=== PATIENT | female | born 1940 | race Caucasian/White ===

== ENCOUNTER 2017-11-28 13:14 | Inpatient (IN) | payer MEDICARE, BC ==
[~2017-11-28] VITALS: Ht 162.6 cm; Wt 73.9 kg
[~2017-11-28 13:14] MED LIST: LOSA25TA13 PO; THYR30TA2 PO
[2017-11-28 14:41] LABS: BASOPHILS % (AUTO) 0.4 % (0.0-2.0); EOSINOPHILS % (AUTO) 0.5 % (0.0-6.0); HEMATOCRIT 24 % (33-45); HEMOGLOBIN 7.9 g/dL (11.5-14.8); LYMPHOCYTES # (AUTO) 0.9 /CMM (0.8-4.8); LYMPHOCYTES % (AUTO) 17.7 % (20.0-44.0); MEAN CORPUSCULAR HGB CONC 33 g/dl (31.0-36.0); MEAN CORPUSCULAR VOLUME 123 fL (82-100); MONOCYTES # (AUTO) 0.4 /CMM (0.1-1.30); MONOCYTES % (AUTO) 7.9 % (2.0-12.0); NEUTROPHILS # (AUTO) 3.6 /CMM (1.8-8.9); NEUTROPHILS % (AUTO) 73.5 % (43.0-81.0); PLATELET COUNT (AUTO) 460 /CMM (150-450); RDW COEFFICIENT OF VARIATION 13.7 (11.5-15.0); WHITE BLOOD COUNT (AUTO) 4.9 K/uL (4.3-11.0)
[2017-11-28 14:47] LABS: RED BLOOD CELL COUNT(AUTO) 1.96 MIL/uL (4.0-5.2)
[2017-11-28 14:52] LABS: CALCIUM, SERUM 8.9 mg/dL (8.5-10.1); CARBON DIOXIDE 28 mmol/L (21-32); CHLORIDE 100 mmol/L (98-107); GLUCOSE 121 mg/dL (74-106); POTASSIUM 4.6 mmol/L (3.5-5.1); SODIUM SERUM 135 mmol/L (136-145); UREA NITROGEN, BLOOD 44 mg/dL (7-18)
[2017-11-28 14:56] LABS: D-DIMER 0.19 mg/L(FEU (0.17-0.50); INR 0.93 (0.87-1.13)
[2017-11-28 14:58] LABS: TROPONIN I < 0.017 ng/mL (0.00-0.056)
[2017-11-28] MEDS ORDERED: PANTOPRAZOLE 40 MG VIAL IV ONE (15:00)
[2017-11-28 15:03] LABS: B-TYPE NATRIURETIC PEPTIDE 67 PG/ML (0-125)
[2017-11-28] MEDS ORDERED: HYDR500C2 (15:25)
[2017-11-28] MEDS ORDERED: URSO250T11 PO (15:25)
[2017-11-28 15:32] LABS: THYROID STIMULATING HORMONE 2.938 uIU/mL (0.358-3.74)
[2017-11-28] MEDS ORDERED: PANTOPRAZOLE 40 MG VIAL ONE (15:35)
[2017-11-28 16:00] VITALS: BP 128/63
[2017-11-28] MEDS ORDERED: MAG HYDROX/AL HYDROX/SIMETH 30 ML UDC PO PRN (16:30)
[2017-11-28] MEDS ORDERED: Z GUARD REMEDY 2 OZ OINT TP PRN (16:30)
[2017-11-28] MEDS ORDERED: ACETAMINOPHEN 325 MG TABLET PO PRN (16:30)
[2017-11-28] MEDS ORDERED: ZOLPIDEM TARTRATE 5 MG TABLET PO PRN (16:30)
[2017-11-28] MEDS ORDERED: MAGNESIUM HYDROXIDE 30 ML UDC PO PRN (16:30)
[2017-11-28] MEDS ORDERED: HYDROCODONE/APAP 5/325MG 1 EACH TABLET PO PRN (16:30)
[2017-11-28] MEDS ORDERED: ONDANSETRON HCL/PF 4 MG/2 ML VIAL IVP PRN (16:30)
[2017-11-28] MEDS ORDERED: PANTOPRAZOLE 40 MG VIAL IV SCH (17:00)
[2017-11-28] MEDS: IV D5 LR 1,000 ML IV PRN (18:01)
[2017-11-28 20:00] VITALS: BP 102/57
[2017-11-28 20:39] LABS: ALBUMIN 3.5 g/dL (3.4-5.0); BILIRUBIN,DIRECT 0.1 mg/dL (0.0-0.2); BILIRUBIN,TOTAL 0.3 mg/dL (0.2-1.0); TOTAL PROTEIN, SERUM 6.4 g/dL (6.4-8.2)
[2017-11-29] VITALS (9 sets, daily range): BP systolic 78–116; BP diastolic 39–63
[2017-11-29 06:36] LABS: CALCIUM, SERUM 8.2 mg/dL (8.5-10.1); CARBON DIOXIDE 27 mmol/L (21-32); CHLORIDE 104 mmol/L (98-107); CREATININE 0.9 mg/dL (0.6-1.3); GLUCOSE 124 mg/dL (74-106); MAGNESIUM 2.1 mg/dL (1.8-2.4); PHOSPHORUS 3.9 mg/dL (2.5-4.9); POTASSIUM 4.3 mmol/L (3.5-5.1); SODIUM SERUM 139 mmol/L (136-145); UREA NITROGEN, BLOOD 30 mg/dL (7-18)
[2017-11-29 06:38] LABS: BASOPHILS % (AUTO) 0.7 % (0.0-2.0); EOSINOPHILS % (AUTO) 1.8 % (0.0-6.0); HEMATOCRIT 21 % (33-45); LYMPHOCYTES # (AUTO) 0.9 /CMM (0.8-4.8); LYMPHOCYTES % (AUTO) 23.1 % (20.0-44.0); MEAN CORPUSCULAR HGB CONC 33 g/dl (31.0-36.0); MEAN CORPUSCULAR VOLUME 123 fL (82-100); MONOCYTES # (AUTO) 0.3 /CMM (0.1-1.30); MONOCYTES % (AUTO) 8.8 % (2.0-12.0); NEUTROPHILS # (AUTO) 2.4 /CMM (1.8-8.9); NEUTROPHILS % (AUTO) 65.6 % (43.0-81.0); PLATELET COUNT (AUTO) 432 /CMM (150-450); RDW COEFFICIENT OF VARIATION 13.4 (11.5-15.0); WHITE BLOOD COUNT (AUTO) 3.7 K/uL (4.3-11.0)
[2017-11-29 06:51] LABS: CHOLESTEROL 127 mg/dL (<200); HDL CHOLESTEROL 57 mg/dL (40-60); LDL 65 mg/dL (0-99); TRIGLYCERIDES 55 mg/dL (30-150)
[2017-11-29 06:57] LABS: RED BLOOD CELL COUNT(AUTO) 1.72 MIL/uL (4.0-5.2)
[2017-11-29 07:35] LABS: EOSINOPHILS % (MANUAL) 1 % (0-4); LYMPHOCYTES % (MANUAL) 17 % (16-48); MONOCYTES % (MANUAL) 5 % (0-11.0); NEUTROPHILS % (MANUAL) 77 (42-76)
[2017-11-29 09:42] LABS: IRON, SERUM 72 ug/dl (50-175); TOTAL IRON BINDING CAPACITY 292 ug/dl (250-450)
[2017-11-29] MEDS: PANTOPRAZOLE 40 MG VIAL IV SCH ×2 (10:06→17:22)
[2017-11-29 14:46] LABS: OCCULT BLOOD STOOL POSITIVE (NEGATIVE)
[2017-11-29] MEDS: IV D5 LR 1,000 ML IV PRN (18:51)
[2017-11-30] MEDS: IV D5 LR 1,000 ML IV PRN (02:00)
[2017-11-30 08:00] VITALS: BP 112/59
[2017-11-30] MEDS: PANTOPRAZOLE 40 MG VIAL IV SCH (08:35)
[2017-11-30 08:44] LABS: BASOPHILS % (AUTO) 1.5 % (0.0-2.0); EOSINOPHILS % (AUTO) 2.5 % (0.0-6.0); HEMATOCRIT 25 % (33-45); HEMOGLOBIN 8.3 g/dL (11.5-14.8); LYMPHOCYTES # (AUTO) 0.7 /CMM (0.8-4.8); LYMPHOCYTES % (AUTO) 22.7 % (20.0-44.0); MEAN CORPUSCULAR HGB CONC 34 g/dl (31.0-36.0); MEAN CORPUSCULAR VOLUME 116 fL (82-100); MONOCYTES # (AUTO) 0.4 /CMM (0.1-1.30); MONOCYTES % (AUTO) 12.2 % (2.0-12.0); NEUTROPHILS # (AUTO) 1.9 /CMM (1.8-8.9); NEUTROPHILS % (AUTO) 61.1 % (43.0-81.0); PLATELET COUNT (AUTO) 426 /CMM (150-450); RDW COEFFICIENT OF VARIATION 19.1 (11.5-15.0); RED BLOOD CELL COUNT(AUTO) 2.11 MIL/uL (4.0-5.2); WHITE BLOOD COUNT (AUTO) 3.1 K/uL (4.3-11.0)
[2017-11-30] MEDS ORDERED: ANESTHESIA TRAY IN PYXIS 1 EA TRAY MC ONE (09:35)
[2017-11-30 09:53] LABS: ALANINE AMINOTRANSFERASE 19 U/L (12-78); ALBUMIN 3.2 g/dL (3.4-5.0); ALKALINE PHOSPHATASE 73 U/L (46-116); ASPARTATE AMINOTRANSFERASE 25 U/L (15-37); BILIRUBIN,TOTAL 0.3 mg/dL (0.2-1.0); CALCIUM, SERUM 8.4 mg/dL (8.5-10.1); CARBON DIOXIDE 28 mmol/L (21-32); CHLORIDE 103 mmol/L (98-107); GLUCOSE 107 mg/dL (74-106); MAGNESIUM 1.8 mg/dL (1.8-2.4); PHOSPHORUS 3.4 mg/dL (2.5-4.9); SODIUM SERUM 137 mmol/L (136-145); TOTAL PROTEIN, SERUM 5.9 g/dL (6.4-8.2); UREA NITROGEN, BLOOD 14 mg/dL (7-18)
[2017-11-30 10:45] VITALS: BP 114/56
[2017-11-30 11:41] LABS: BAND % (MANUAL) 1 % (0.0-5.0); EOSINOPHILS % (MANUAL) 1 % (0-4); LYMPHOCYTES % (MANUAL) 24 % (16-48); MONOCYTES % (MANUAL) 8 % (0-11.0); NEUTROPHILS % (MANUAL) 66 (42-76)
== END 2017-11-30 16:05 | disposition home or self-care (01) | DRG 394 ==
LOC: ER 13:19 → TELE 15:38 → MED 11-29 08:27
PROVIDERS: ADMIT Hospitalist; ATTEND Hospitalist
PROC: 30233N1 Transfusion of Nonautologous Red Blood Cells into Peripheral Vein, Percutaneous Approach (ICD-10-PCS; 2017-11-29)
PROC: 0DB78ZX Excision of Stomach, Pylorus, Via Natural or Artificial Opening Endoscopic, Diagnostic (ICD-10-PCS; 2017-11-30)
PROC: 0DB98ZX Excision of Duodenum, Via Natural or Artificial Opening Endoscopic, Diagnostic (ICD-10-PCS; principal; 2017-11-30 10:00)
DX: K31.7 Polyp of stomach and duodenum (principal); N17.9 Acute kidney failure, unspecified; E06.3 Autoimmune thyroiditis; K74.3 Primary biliary cirrhosis; Z88.1 Allergy status to other antibiotic agents; Z88.5 Allergy status to narcotic agent; D50.9 Iron deficiency anemia, unspecified; D47.3 Essential (hemorrhagic) thrombocythemia; Z87.19 Personal history of other diseases of the digestive system; N18.9 Chronic kidney disease, unspecified; K44.9 Diaphragmatic hernia without obstruction or gangrene; Z79.82 Long term (current) use of aspirin; Z87.891 Personal history of nicotine dependence
CPT/HCPCS: 36415; 71045-TC; 80048-TC; 80053-TC; 80061-TC; 80076-TC; 82247-TC; 82248-TC; 82272-TC; 82728-TC; 82962-TC; 83540-TC; 83735-TC; 83880; 84100-TC; 84439-TC; 84443-TC; 84484-TC; 85025-TC; 85378-TC; 85730-TC; 86850-TC; 86921-TC; 87081-TC; 88305-TC; 88313-TC; 88342; 93307-TC; A4606; C9113; G0378; J2704; J3490; J7030; J7050; P9016-BL; Z7610

== ENCOUNTER 2018-02-01 14:50 | Inpatient (IN) | payer MEDICARE, BC ==
[~2018-02-01] VITALS: Ht 165.1 cm; Wt 71.7 kg
[~2018-02-01 14:50] MED LIST changes: +HYDR500C2; -LOSA25TA13 PO; +LOSA25TA27 PO; +URSO250T11 PO
[2018-02-01 15:11] LABS: BASOPHILS # (AUTO) 0.1 /CMM (0.0-0.2); BASOPHILS % (AUTO) 0.9 % (0.0-2.0); EOSINOPHILS % (AUTO) 1.2 % (0.0-6.0); HEMATOCRIT 30 % (33-45); HEMOGLOBIN 10.5 g/dL (11.5-14.8); MEAN CORPUSCULAR HGB CONC 35 g/dl (31.0-36.0); MEAN CORPUSCULAR VOLUME 121 fL (82-100); MONOCYTES # (AUTO) 0.8 /CMM (0.1-1.30); MONOCYTES % (AUTO) 11.6 % (2.0-12.0); NEUTROPHILS # (AUTO) 4.7 /CMM (1.8-8.9); NEUTROPHILS % (AUTO) 71.3 % (43.0-81.0); PLATELET COUNT (AUTO) 547 /CMM (150-450); RED BLOOD CELL COUNT(AUTO) 2.52 MIL/uL (4.0-5.2); WHITE BLOOD COUNT (AUTO) 6.6 K/uL (4.3-11.0)
--- NOTE | 2018-02-01 15:13 | NUR ---
bib ra c/o weakness and hypotension. PT AAOX4, VSS. DENIES CP, SOB, N/V/D, WEAKNESS/TINGLING SENSATION, BULLARD OR ANY OTHER DISCOMFORT @ THIS TIME. PLACED ON SPLITTER HEAD, SB, NO ECTOPY NOTED. PT SEEN & EVAL'D BY DR. MA & WILL CONT TO MONITOR. DAUGHTERS @ BS.
[2018-02-01 15:21] LABS: CARBON DIOXIDE 27 mmol/L (21-32); CHLORIDE 97 mmol/L (98-107); CREATININE 1.8 mg/dL (0.6-1.3); GLUCOSE 179 mg/dL (74-106); POTASSIUM 4.5 mmol/L (3.5-5.1); SODIUM SERUM 132 mmol/L (136-145); UREA NITROGEN, BLOOD 40 mg/dL (7-18)
[2018-02-01] MEDS ORDERED: ONDA8TAB12 PO (15:23)
[2018-02-01 15:28] LABS: ALANINE AMINOTRANSFERASE 20 U/L (12-78); ALBUMIN 3.2 g/dL (3.4-5.0); ALKALINE PHOSPHATASE 119 U/L (46-116); ASPARTATE AMINOTRANSFERASE 23 U/L (15-37); BILIRUBIN,DIRECT 0.1 mg/dL (0.0-0.2); BILIRUBIN,TOTAL 0.2 mg/dL (0.2-1.0); TOTAL PROTEIN, SERUM 6.2 g/dL (6.4-8.2)
--- NOTE | 2018-02-01 16:09 | NUR ---
PT AMB TO BR W/O ASSISTANCE, NAD NOTED UPON AMBULATING.
--- NOTE | 2018-02-01 16:17 | NUR ---
PT ADMIT TO ROOM 114-2 TELE DX GI BLEED ADMITTING: ABDULLAHI TREJO
[2018-02-01] MEDS ORDERED: IV NS 0.9% 1,000 ML BAG IV ONE (16:30)
--- NOTE | 2018-02-01 16:44 | NUR ---
REPORT GIVEN TO CATALINO ANAND FOR CONT OF CARE.
--- NOTE | 2018-02-01 16:44 | NUR ---
RN NOTES RECEIVED REPORT FROM CATALINO WORLEY FOR PATIENT COMING IN FOR GENERAL WEAKNESS, WITH TELEMETRY ACUITY UNDER THE SERVICE OF ABDULLAHI TREJO NP. ROOM PREPARED, AWAITING PATIENT ARRIVAL
[2018-02-01 17:04] LABS: EOSINOPHILS % (MANUAL) 1 % (0-4); LYMPHOCYTES % (MANUAL) 25 % (16-48); MONOCYTES % (MANUAL) 11 % (0-11.0); NEUTROPHILS % (MANUAL) 63 (42-76)
--- NOTE | 2018-02-01 17:15 | NUR ---
RN NOTES RECEIVED PATIENT FROM ER, AMBULATORY, A/OX4, NOT ON ANY FORM OF DISTRESS, ON ROOM AIR, BREATHING EVEN AND UNLABORED, VITAL SIGNS TAKEN AND NOTED FOLLOWS BP AT 136/66, HR AT 65, RR AT 16, TEMP AT 97.6, SATS AT 98%. SKIN ASSESSMENT DONE, SKIN INTACT. PATIENT MADE COMFORTABLE AND WARMTH IN BED, ORIENTED TO FLOOR, SAFETY MEASURES PUT IN PLACED, SR X2 RAISED, CALL LIGHT WITHIN REACH, BED ALARM ON, BED LOW AND LOCKED, WILL CONTINUE TO MONITOR PATIENT
[2018-02-01] MEDS ORDERED: ENOXAPARIN SODIUM 40 MG/0.4 ML DISP.SYRIN SQ SCH (17:30)
[2018-02-01] MEDS ORDERED: Z GUARD REMEDY 2 OZ OINT TP PRN (17:30)
[2018-02-01] MEDS ORDERED: ZOLPIDEM TARTRATE 5 MG TABLET PO PRN (17:30)
[2018-02-01] MEDS ORDERED: ACETAMINOPHEN 325 MG TABLET PO PRN (17:30)
[2018-02-01] MEDS ORDERED: ONDANSETRON 4 MG TAB.RAPDIS SL PRN (17:30)
[2018-02-01] MEDS: IV NS 0.9% 1,000 ML IV PRN (17:59)
--- NOTE | 2018-02-01 18:55 | NUR ---
RN NOTES PATIENT COMPLAINED THAT SHE IS HAVING DIARRHEA, HAD 2 LIQUIDLY BM SINCE TRANSFER. INFORMED ABDULLAHI TREJO ASSISTANT PRESSMAN; OBTAINED ORDER FOR LOMOTIL 1 TIME DOSE AND TO RUN A C DIFF TOXIN. ORDER NOTED AND CARRIED OUT
[2018-02-01] MEDS ORDERED: DIPHENOXYLATE HCL/ATROP SULF 1 UDTAB TABLET PO ONE (19:00)
--- NOTE | 2018-02-01 19:49 | NUR ---
RN NOTES ENDORSED PATIENT FOR CONTINUITY OF CARE, PATIENT STILL WITH COMPLAINTS OF WEAKNESS AND WITH RECURRENT LBM. ON IV HYDRATION OF NS RUNNING AT 100CC/HR. LOMOTIL DOSE GIVEN AT 1900. STOOL SAMPLE FOR C DIFF TOXIN COLLECTED-LAB INFORMED. PATIENT INFORMED ON ISOLATION STATUS PENDING C. DIFF RESULT. ENCOURAGE TO DRINK WATER. SAFETY MEASURES KEPT IN PLACE. ENCOURAGE TO CALL FOR ASSISTANCE. CALL LIGHT WITHIN REACH
[2018-02-01 20:00] VITALS: BP 102/51
[2018-02-01] MEDS: PANTOPRAZOLE 40 MG TABLET.DR PO SCH (20:19)
[2018-02-01] MEDS: HEPARIN SODIUM, PORCINE 5000 UNITS/1 ML VIAL SQ SCH (20:21)
[2018-02-01] MEDS: URSODIOL 300 MG CAPSULE PO SCH (20:29)
[2018-02-02] VITALS: BP 108/49
--- NOTE | 2018-02-02 03:24 | NUR ---
RN NOTES PATIENT ENDORSED TO NURSE DOW FOR CONTINUITY OF CARE
--- NOTE | 2018-02-02 03:25 | NUR ---
QUARRY MANAGER NOTE REPORT RECEIVED FROM NURSE GUZMÁN. PT IN BED ASLEEP, AROUSABLE. NO DISTRESS OR DISCOMFORT NOTED. DENIES PAIN. IVF NS INFUSING AT 100 ML/HR, NO S/S OF INFILTRATION NOTED. ON TELE SR WITH BBB HR 70. SIDE RAILS UP X 2 AND CALL LIGHT WITHIN REACH. CONTINUE TO MONITOR HER.
[2018-02-02 04:00] VITALS: BP 130/61
[2018-02-02] MEDS: IV NS 0.9% 1,000 ML IV PRN ×2 (04:03→20:47)
--- NOTE | 2018-02-02 04:23 | NUR ---
TEMPERATURE REGULATOR NOTE PT AWAKE, AND INFORMED ME THAT SHE HAD DIARRHEA WITH BLOOD. REMINDED PT NOT TO FLUSH THE TOILET. WILL MONITOR HER CONDITION.
--- NOTE | 2018-02-02 04:40 | NUR ---
ALLIED HEALTH TEACHER NOTE PT WENT TO BATHROOM. EPISODE OF SMALL DIARRHEA BUT NO BLOOD NOTED. CONTINUE TO MONITOR HER.
--- NOTE | 2018-02-02 06:29 | NUR ---
PERMANENT WAVER NOTE PT IN BED ASLEEP, AROUSABLE. NO DISTRESS NOTED. DENIES PAIN. ON TELE MONITOR SR WITH BBB HR HR 72. SIDE RAILS UP X 3 AND CALL LIGHT WITH IN REACH. WILL ENDORSE TO DAY SHIFT NURSE FOR CONTINUE TO CARE.
[2018-02-02 07:35] LABS: BASOPHILS % (AUTO) 0.3 % (0.0-2.0); HEMATOCRIT 30 % (33-45); HEMOGLOBIN 10.1 g/dL (11.5-14.8); LYMPHOCYTES # (AUTO) 0.7 /CMM (0.8-4.8); MEAN CORPUSCULAR HGB CONC 34 g/dl (31.0-36.0); MEAN CORPUSCULAR VOLUME 120 fL (82-100); MONOCYTES # (AUTO) 0.5 /CMM (0.1-1.30); NEUTROPHILS # (AUTO) 7.2 /CMM (1.8-8.9); NEUTROPHILS % (AUTO) 84.7 % (43.0-81.0); PLATELET COUNT (AUTO) 458 /CMM (150-450); RED BLOOD CELL COUNT(AUTO) 2.49 MIL/uL (4.0-5.2); WHITE BLOOD COUNT (AUTO) 8.5 K/uL (4.3-11.0)
[2018-02-02 07:49] LABS: CHOLESTEROL 141 mg/dL (<200); HDL CHOLESTEROL 57 mg/dL (40-60); LDL 75 mg/dL (0-99); TRIGLYCERIDES 75 mg/dL (30-150)
[2018-02-02 08:00] VITALS: BP 105/49
[2018-02-02 08:12] LABS: CALCIUM, SERUM 7.9 mg/dL (8.5-10.1); CARBON DIOXIDE 22 mmol/L (21-32); CHLORIDE 105 mmol/L (98-107); GLUCOSE 99 mg/dL (74-106); MAGNESIUM 1.7 mg/dL (1.8-2.4); PHOSPHORUS 3.2 mg/dL (2.5-4.9); POTASSIUM 4.3 mmol/L (3.5-5.1); SODIUM SERUM 136 mmol/L (136-145); UREA NITROGEN, BLOOD 25 mg/dL (7-18)
[2018-02-02] MEDS: THYROID 30 MG TABLET PO SCH (08:47)
[2018-02-02] MEDS: HYDROXYUREA 500 MG CAPSULE PO SCH (08:48)
[2018-02-02] MEDS: HEPARIN SODIUM, PORCINE 5000 UNITS/1 ML VIAL SQ SCH ×2 (08:48→21:00)
[2018-02-02] MEDS: PANTOPRAZOLE 40 MG TABLET.DR PO SCH ×2 (08:48→20:47)
[2018-02-02] MEDS: LOSARTAN POTASSIUM 50 MG TABLET PO SCH (08:49)
[2018-02-02] MEDS: URSODIOL 300 MG CAPSULE PO SCH ×2 (10:47→21:43)
[2018-02-02 12:00] VITALS: BP 130/63
[2018-02-02] MEDS: Magnesium 1GM/D5W 100ML PREMIX 100 ML IV SCH ×2 (12:57→15:04)
[2018-02-02] MEDS: LACTOBACILLUS RHAMNOSUS GG 1 EACH CAP.SPRINK PO SCH ×2 (13:59→18:11)
[2018-02-02] MEDS ORDERED: NA PHOS,M-B/NA PHOS,DI-BA 1 EA ENEMA RC PRN (15:30)
[2018-02-02] MEDS ORDERED: MAGNESIUM CITRATE 296 ML BOTTLE PO ONE (15:30)
[2018-02-02] MEDS ORDERED: PEG 3350/NA SULF,BICARB,CL/KCL 4,000 ML BOTTLE PO ONE (15:30)
[2018-02-02 16:00] VITALS: BP 130/58
[2018-02-02 16:19] LABS: APPEARANCE,URINE CLEAR (CLEAR); BILIRUBIN,URINE NEGATIVE (NEGATIVE); BLOOD, URINE NEGATIVE Ery/uL (NEGATIVE); COLOR,URINE YELLOW (YELLOW); KETONES,URINE NEGATIVE (NEGATIVE); LEUKOCYTE ESTERASE ,URINE NEGATIVE (NEGATIVE); NITRITE, URINE NEGATIVE (NEGATIVE); PROTEIN,URINE NEGATIVE (NEGATIVE); UGLUCOSE NEGATIVE (NEGATIVE); UROBILINOGEN,URINE 0.2 EU/dL (0.2)
--- NOTE | 2018-02-02 19:15 | NUR ---
RADIO INSTALLER AUTOMOBILE NOTE PATIENT REFUSED ENEMA, EXPLAINED RISKS, PATIENT STATES UNDERSTANDING BUT SAYING "I AM ALREADY GOING TO THE BATHROOM I DON'T NEED AN ENEMA."
--- NOTE | 2018-02-02 19:40 | NUR ---
FLASH DEVELOPER OPENING NOTE PT RECEIVED RESTING IN BED. NO DISTRESS NOTED. A & O X 4. DENIES ANY PAIN. ON TELE MONITOR SR WITH BBB HR HR 70. IV ACCESS TO LFA, INTACT PATENT, INFUSING WITH IVF ORDERED. NPO AFTER MIDNIGHT. SCHEDULED FOR COLONOSCOPY TOMORROW. AM RN JANETTE INFORMED THAT PT HAS BEEN REFUSING FLEET ENEMA, MAGNESIUM CITRATE & GOLYTELY DESPITE OF RISKS & BENEFITS EXPLANATIONS. WILL RECHECK WITH THE PATIENT. PT STATED SHE HAD LOOSE BM X 3-4, NO BLOOD NOTED. SIDE RAILS UP X 2 AND CALL LIGHT WITH IN REACH. BED IN LOW LOCKED POSITION. WILL CONTINUE TO MONITOR CLOSELY.
[2018-02-02 20:00] VITALS: BP_SYST 134; BP_SYST 139; BP_DIAS 74
--- NOTE | 2018-02-02 21:12 | NUR ---
REFUSED PO SOLUTIONS PATIENT COMPLETELY REFUSED TO TAKE GOLYTELY, MAGNESIUM CITRATE & FLEET ENEMA, STATED IT MAKES HER NAUSEA/VOMITING. OFFERED ZOFRAN ORDERED BUT PT REFUSED TO TAKE IT & STATED THAT JUST DO NOT GIVE ME MAGNESIUM CITRATE & GOLYTELY, I AM FINE. ARMANI DONOVAN MADE AWARE & SHE SAID OK.
--- NOTE | 2018-02-02 21:15 | NUR ---
REFUSED HEPARIN PATIENT REFUSED TO GET HEPARIN DESPITE OF RISKS & BENEFITS EXPLANATIONS, PT CONTINUED TO REFUSE.
[2018-02-03] VITALS: BP 136/64
[2018-02-03 04:00] VITALS: BP 109/44
--- NOTE | 2018-02-03 06:24 | NUR ---
TUBE PUSHER CLOSING NOTE PT SLEPT INTERMITTENTLY AT NIGHT. NO DISTRESS NOTED. A & O X 4. DENIES ANY PAIN. ON TELE MONITOR SR WITH BBB HR HR 75. IV ACCESS TO LFA, INTACT PATENT, INFUSING WITH IVF ORDERED. NPO AFTER MIDNIGHT. SCHEDULED FOR COLONOSCOPY TODAY AT 2PM, PATIENT & DTR LAY IS AWARE. PT STATED SHE HAD LOOSE BM X 4, NO BLOOD NOTED. SIDE RAILS UP X 2 AND CALL LIGHT WITH IN REACH. BED IN LOW LOCKED POSITION. WILL ENDORSE TO AM RN FOR CONTINUITY OF CARE.
--- NOTE | 2018-02-03 06:50 | NUR ---
PRODUCTION OPERATIONS MANAGER NOTE PATIENT C/O MILD PAIN RIGHT ABDOMINAL SIDE, OFFERED HER PAIN MEDICINE BUT PT REFUSED SAYING THAT SHE WILL BE FINE AFTER SHE REPOSITIONS HERSELF. SHE CONTINUED REFUSING PAIN MEDS. ENDORSED TO AM RN.
[2018-02-03 07:25] LABS: CALCIUM, SERUM 7.9 mg/dL (8.5-10.1); CARBON DIOXIDE 24 mmol/L (21-32); CHLORIDE 103 mmol/L (98-107); CREATININE 0.8 mg/dL (0.6-1.3); GLUCOSE 92 mg/dL (74-106); MAGNESIUM 1.8 mg/dL (1.8-2.4); POTASSIUM 3.8 mmol/L (3.5-5.1); SODIUM SERUM 135 mmol/L (136-145); UREA NITROGEN, BLOOD 11 mg/dL (7-18)
--- NOTE | 2018-02-03 07:30 | NUR ---
received pt. alert and oriented x4 npo for procedure.spoke with lourdes in surgery.
[2018-02-03 08:00] VITALS: BP 135/75
--- NOTE | 2018-02-03 08:30 | NUR ---
dr. lewis in and spoke at length with pt. procedure for today to be cancelled. states he will call or and give them pt. status.pt. to be fed.food ordered.
[2018-02-03] MEDS: IV NS 0.9% 1,000 ML IV PRN (08:37)
[2018-02-03] MEDS: HEPARIN SODIUM, PORCINE 5000 UNITS/1 ML VIAL SQ SCH (09:00)
[2018-02-03] MEDS: THYROID 30 MG TABLET PO SCH (09:44)
[2018-02-03 10:29] VITALS: BP 135/75
[2018-02-03] MEDS: LOSARTAN POTASSIUM 50 MG TABLET PO SCH (10:29)
[2018-02-03] MEDS: HYDROXYUREA 500 MG CAPSULE PO SCH (10:30)
[2018-02-03] MEDS: LACTOBACILLUS RHAMNOSUS GG 1 EACH CAP.SPRINK PO SCH (10:30)
[2018-02-03] MEDS: PANTOPRAZOLE 40 MG TABLET.DR PO SCH (10:30)
[2018-02-03] MEDS: URSODIOL 300 MG CAPSULE PO SCH (10:30)
--- NOTE | 2018-02-03 10:30 | NUR ---
pt. states watery jones stool.denies nausea and vomiting.
[2018-02-03] MEDS ORDERED: PANT40TA2 PO (11:32)
--- NOTE | 2018-02-03 14:29 | NUR ---
dtr.here and pt. given dc instructions,hep lock out. belonging sheet signed.given rx. verbalized understanding of all instructions.taken via w/c to lobby accompanied by roll form operator.
[2018-02-07] MEDS ORDERED: HYDROXYUREA 500 MG CAPSULE PO SCH (09:00)
== END 2018-02-03 14:33 | disposition home or self-care (01) | DRG 683 ==
LOC: ER 14:54 → TELE1 16:28 → MEDSG1 02-03 09:47
PROVIDERS: ADMIT Nurse Practitioner Acute Care; ATTEND Nurse Practitioner Acute Care
DX: N17.0 Acute kidney failure with tubular necrosis (principal); E87.1 Hypo-osmolality and hyponatremia; E86.0 Dehydration; D63.8 Anemia in other chronic diseases classified elsewhere; Z87.440 Personal history of urinary (tract) infections; E03.9 Hypothyroidism, unspecified; D47.3 Essential (hemorrhagic) thrombocythemia; K74.3 Primary biliary cirrhosis; Z87.11 Personal history of peptic ulcer disease
CPT/HCPCS: 36415; 71045-TC; 80048-TC; 80061-TC; 80076-TC; 81000-TC; 82962-TC; 83605-TC; 83735-TC; 84100-TC; 84439-TC; 84443-TC; 84484-TC; 85025-TC; 85730-TC; 86850-TC; 87040-TC; 87081-TC; 87086-TC; A4606; G0378; J1644; J3475; J7030; Z7610

== ENCOUNTER 2018-03-13 11:44 | Emergency (ER) | payer MEDICARE, BC ==
[~2018-03-13] VITALS: Ht 160 cm; Wt 76.7 kg
[~2018-03-13 11:44] MED LIST changes: +ONDA8TAB12 PO; +PANT40TA2 PO
--- NOTE | 2018-03-13 11:45 | NUR ---
PT [id number] FROM HOME C/O DIFFUSE ABDOMINAL PAIN, CONSTIPATION X 1 WEEK. PT IS AAOX3, NOT IN RESPIRATORY DISTRESS, V/S STABLE, KEPT RESTED AND COMFORTABLE.
--- NOTE | 2018-03-13 11:52 | NUR ---
SEEN AND EXAMINED BY DR. WEINER.
--- NOTE | 2018-03-13 12:23 | NUR ---
FLEET ENEMA TWICE VIA RC.
[2018-03-13] MEDS ORDERED: NA PHOS,M-B/NA PHOS,DI-BA 1 EA ENEMA RC ONE ×3 (12:48→13:16)
[2018-03-13] MEDS ORDERED: MAGNESIUM CITRATE 296 ML BOTTLE ONE (13:37)
[2018-03-13 13:59] VITALS: BP 128/71
[2018-03-13] MEDS ORDERED: MAGNESIUM CITRATE 296 ML BOTTLE PO ONE (14:00)
--- NOTE | 2018-03-13 14:00 | NUR ---
IV removed. Catheter intact and site benign. Pressure and 4x4 applied to site. No bleeding noted. Patient discharged to home in stable condition. Written and verbal after care instructions given. Patient verbalizes understanding of instruction.
== END 2018-03-13 15:07 | disposition home or self-care (01) ==
LOC: ER 11:45
DX: K59.00 Constipation, unspecified (principal); E03.9 Hypothyroidism, unspecified; F10.10 Alcohol abuse, uncomplicated; Y90.9 Presence of alcohol in blood, level not specified; Z88.5 Allergy status to narcotic agent; Z88.1 Allergy status to other antibiotic agents; Z60.2 Problems related to living alone; Z87.891 Personal history of nicotine dependence
CPT/HCPCS: 99284; A4606